=== PATIENT | female | born 1955 | race Caucasian/White ===

== ENCOUNTER 2020-08-24 12:17 | Inpatient (IN) ==
[2020-08-24] MEDS ORDERED: Ondansetron 4 MG/2 ML VIAL IVP ONE (12:28)
[2020-08-24 12:56] LABS: Basophils % 0.3 %; Hematocrit 39.9 % (35.3-44.9); Hemoglobin 13.2 g/dL (11.5-15.4); Immature Granulocytes % 1.1 % (0-4); Lymphocytes # 0.9 K/mcL (0.6-4.6); Lymphocytes % 14.1 %; Mean Corpuscular HGB Conc 33.1 g/dL (31.6-35.5); Mean Corpuscular Hemoglobin 28.4 pg (28.0-33.3); Mean Platelet Volume 9.6 fL (9.4-12.4); Monocytes # 0.6 K/mcL (0.0-1.3); Monocytes % 9.3 %; Neutrophils # 4.7 K/mcL (1.6-8.9); Platelet Count 218 K/mcL (140-400); Red Blood Count 4.64 M/mcL (3.82-4.97); Red Cell Distribution Width 13.1 % (11.5-14.5); Segmented Neutrophils % 75.2 %; White Blood Count 6.2 K/mcL (4.3-11.1)
[2020-08-24 13:05] LABS: Fibrinogen 615 mg/dL (169-393)
[2020-08-24 13:07] LABS: D-Dimer 629 ng/mLFEU (0-500)
[2020-08-24] MEDS ORDERED: levoFLOXacin 750 MG/150 ML 750 MG/150 ML BAG IVPB ONE (13:14)
[2020-08-24 13:24] LABS: Alanine Aminotransferase 31 Units/L (7-52); Alkaline Phosphatase 99 Units/L (34-104); Aspartate Amino Transferase 53 Units/L (13-39); BUN/Creatinine Ratio 10 (6-26); Bilirubin,Total 0.7 mg/dL (0.3-1.0); Blood Urea Nitrogen 6 mg/dL (8-23); Calcium 8.6 mg/dL (8.6-10.3); Carbon Dioxide 26 mEq/L (23-29); Chloride 91 mEq/L (98-107); Glucose 229 mg/dL (70-105); Osmolality,Calculated 277 (280-300); Potassium 2.7 mEq/L (3.5-5.1); Sodium 131 mEq/L (136-145); Troponin I < 0.03 ng/mL (< 0.04); eGFR For African Americans > 60 (> 60); eGFR For Non-African Americans > 60 (> 60)
[2020-08-24] MEDS ORDERED: Isovue-370 500 ML BOTTLE IVP ONE (13:29)
[2020-08-24] MEDS ORDERED: Dexamethasone 4 MG/ML VIAL IVP STA (13:30)
[2020-08-24] MEDS ORDERED: Naloxone 0.4 MG/ML INJ IVP PRN (15:39)
[2020-08-24] MEDS ORDERED: Potassium Chloride 40 MEQ, Lidocaine 1% 2 ML in 0.9 % Sodium Chloride 500 ML IVPB ONE (15:41)
[2020-08-24] MEDS ORDERED: 0.9 % Sodium Chloride 250 ML IVC SCH (17:00)
[2020-08-24] MEDS ORDERED: Remdesivir 200 MG in 0.9 % Sodium Chloride 210 ML IVPB ONE (18:00)
[2020-08-24] MEDS ORDERED: D5% in Water 1,000 ML IVC PRN (20:03)
[2020-08-24] MEDS ORDERED: Dextrose Gel 15 GM/37.5 ML TUBE PO PRN ×2 (20:03)
[2020-08-24] MEDS ORDERED: *HR* Dextrose 50 % in Water (Vial) 50 ML VIAL IVP PRN (20:03)
[2020-08-24] MEDS: Insulin LISPRO 300 UNITS/3 ML VIAL SQ SCH (20:35)
[2020-08-25] MEDS: *HR* Enoxaparin 40 MG/0.4 ML SYRINGE SQ SCH (05:21)
[2020-08-25] MEDS: Benzonatate 100 MG CAPSULE PO PRN ×2 (06:14→14:52)
[2020-08-25] MEDS: Dexamethasone 4 MG/ML VIAL IVP SCH (08:31)
[2020-08-25] MEDS: Aspirin Enteric Coated 81 MG Tablet PO SCH (08:31)
[2020-08-25] MEDS: Insulin LISPRO 300 UNITS/3 ML VIAL SQ SCH ×4 (08:32→20:04)
[2020-08-25] MEDS: levoFLOXacin 750 MG/150 ML 750 MG/150 ML BAG IVPB SCH (08:32)
[2020-08-25 08:33] LABS: Hematocrit 38.1 % (35.3-44.9); Hemoglobin 12.5 g/dL (11.5-15.4); Mean Corpuscular HGB Conc 32.8 g/dL (31.6-35.5); Mean Corpuscular Hemoglobin 28.4 pg (28.0-33.3); Mean Corpuscular Volume 86.6 fL (83.0-100.0); Mean Platelet Volume 9.4 fL (9.4-12.4); Platelet Count 224 K/mcL (140-400); Red Cell Distribution Width 13.2 % (11.5-14.5); White Blood Count 5.3 K/mcL (4.3-11.1)
[2020-08-25 08:37] LABS: INR 1.4; Prothrombin Time 15.7 Seconds (9.4-12.1)
[2020-08-25 08:53] LABS: Alanine Aminotransferase 29 Units/L (7-52); Albumin 3.8 g/dL (3.5-5.7); Alkaline Phosphatase 93 Units/L (34-104); Aspartate Amino Transferase 48 Units/L (13-39); BUN/Creatinine Ratio 19 (6-26); Bilirubin,Total 0.6 mg/dL (0.3-1.0); Blood Urea Nitrogen 10 mg/dL (8-23); Calcium 8.7 mg/dL (8.6-10.3); Carbon Dioxide 28 mEq/L (23-29); Chloride 96 mEq/L (98-107); Globulin 3.7 g/dL (2.4-3.5); Glucose 217 mg/dL (70-105); Osmolality,Calculated 284 (280-300); Potassium 3.1 mEq/L (3.5-5.1); Sodium 134 mEq/L (136-145); Total Protein 7.5 g/dL (6.4-8.9); eGFR For African Americans > 60 (> 60); eGFR For Non-African Americans > 60 (> 60)
[2020-08-25] MEDS: Remdesivir 100 MG in 0.9 % Sodium Chloride 230 ML IVPB SCH (17:50)
[2020-08-25] MEDS: Budesonide/Formoterol 160/4.5 1 PUFF INH IH SCH (20:08)
[2020-08-26 06:09] LABS: Hematocrit 37.1 % (35.3-44.9); Hemoglobin 11.9 g/dL (11.5-15.4); Mean Corpuscular HGB Conc 32.1 g/dL (31.6-35.5); Mean Corpuscular Hemoglobin 28.3 pg (28.0-33.3); Mean Corpuscular Volume 88.1 fL (83.0-100.0); Mean Platelet Volume 9.4 fL (9.4-12.4); Platelet Count 264 K/mcL (140-400); Red Blood Count 4.21 M/mcL (3.82-4.97); Red Cell Distribution Width 13.5 % (11.5-14.5); White Blood Count 6.9 K/mcL (4.3-11.1)
[2020-08-26 06:17] LABS: INR 1.4
[2020-08-26] MEDS: Levothyroxine 25 MCG TABLET PO SCH (06:26)
[2020-08-26] MEDS: *HR* Enoxaparin 40 MG/0.4 ML SYRINGE SQ SCH (06:27)
[2020-08-26 06:30] LABS: Alanine Aminotransferase 26 Units/L (7-52); Albumin 3.6 g/dL (3.5-5.7); Albumin/Globulin Ratio 1.1 (1.1-2.2); Alkaline Phosphatase 86 Units/L (34-104); Aspartate Amino Transferase 45 Units/L (13-39); BUN/Creatinine Ratio 26 (6-26); Bilirubin,Total 0.5 mg/dL (0.3-1.0); Blood Urea Nitrogen 14 mg/dL (8-23); Calcium 8.6 mg/dL (8.6-10.3); Carbon Dioxide 29 mEq/L (23-29); Chloride 99 mEq/L (98-107); Globulin 3.3 g/dL (2.4-3.5); Glucose 168 mg/dL (70-105); Osmolality,Calculated 284 (280-300); Potassium 3.7 mEq/L (3.5-5.1); Sodium 135 mEq/L (136-145); Total Protein 6.9 g/dL (6.4-8.9); eGFR For African Americans > 60 (> 60); eGFR For Non-African Americans > 60 (> 60)
[2020-08-26] MEDS: Budesonide/Formoterol 160/4.5 1 PUFF INH IH SCH ×2 (07:37→19:44)
[2020-08-26] MEDS: Dexamethasone 4 MG/ML VIAL IVP SCH (08:05)
[2020-08-26] MEDS: Venlafaxine XR (24 HR) 150 MG CAP.ER.24H PO SCH (08:06)
[2020-08-26] MEDS: Aspirin Enteric Coated 81 MG Tablet PO SCH (08:06)
[2020-08-26] MEDS: amLODIPine 5 MG TABLET PO SCH ×2 (08:08→09:23)
[2020-08-26] MEDS: levoFLOXacin 750 MG/150 ML 750 MG/150 ML BAG IVPB SCH (08:08)
[2020-08-26] MEDS: Insulin LISPRO 300 UNITS/3 ML VIAL SQ SCH ×4 (08:11→20:37)
[2020-08-26] MEDS: Furosemide 40 MG/4 ML VIAL IVP SCH (11:07)
[2020-08-26] MEDS: Spironolactone 25 MG TABLET PO SCH (11:08)
[2020-08-26] MEDS: Ipratropium 1 PUFF INHALER IH SCH ×3 (16:30→23:49)
[2020-08-26] MEDS: Remdesivir 100 MG in 0.9 % Sodium Chloride 230 ML IVPB SCH (18:54)
[2020-08-26] MEDS: Benzonatate 100 MG CAPSULE PO PRN (20:36)
[2020-08-27] MEDS: Ipratropium 1 PUFF INHALER IH SCH ×5 (04:02→19:36)
[2020-08-27] MEDS ORDERED: Morphine Sulfate 2 MG/ML SYRINGE IVP ONE (05:04)
[2020-08-27] MEDS: Levothyroxine 25 MCG TABLET PO SCH (05:11)
[2020-08-27] MEDS: *HR* Enoxaparin 40 MG/0.4 ML SYRINGE SQ SCH (05:11)
[2020-08-27 06:25] LABS: Hematocrit 37.6 % (35.3-44.9); Hemoglobin 12.1 g/dL (11.5-15.4); Mean Corpuscular HGB Conc 32.2 g/dL (31.6-35.5); Mean Corpuscular Hemoglobin 27.8 pg (28.0-33.3); Mean Corpuscular Volume 86.4 fL (83.0-100.0); Mean Platelet Volume 9.6 fL (9.4-12.4); Platelet Count 313 K/mcL (140-400); Red Blood Count 4.35 M/mcL (3.82-4.97); Red Cell Distribution Width 13.5 % (11.5-14.5); White Blood Count 7.4 K/mcL (4.3-11.1)
[2020-08-27 06:27] LABS: INR 1.4; Prothrombin Time 16.2 Seconds (9.4-12.1)
[2020-08-27 06:51] LABS: Alanine Aminotransferase 25 Units/L (7-52); Albumin 3.4 g/dL (3.5-5.7); Alkaline Phosphatase 88 Units/L (34-104); Aspartate Amino Transferase 49 Units/L (13-39); BUN/Creatinine Ratio 28 (6-26); Bilirubin,Total 0.5 mg/dL (0.3-1.0); Blood Urea Nitrogen 17 mg/dL (8-23); Calcium 8.4 mg/dL (8.6-10.3); Carbon Dioxide 29 mEq/L (23-29); Chloride 95 mEq/L (98-107); Globulin 3.5 g/dL (2.4-3.5); Glucose 151 mg/dL (70-105); Osmolality,Calculated 278 (280-300); Potassium 4.2 mEq/L (3.5-5.1); Sodium 132 mEq/L (136-145); Total Protein 6.9 g/dL (6.4-8.9); eGFR For African Americans > 60 (> 60); eGFR For Non-African Americans > 60 (> 60)
[2020-08-27] MEDS: Budesonide/Formoterol 160/4.5 1 PUFF INH IH SCH ×2 (07:26→19:36)
[2020-08-27] MEDS: Insulin LISPRO 300 UNITS/3 ML VIAL SQ SCH ×4 (08:08→21:01)
[2020-08-27] MEDS: Dexamethasone 4 MG/ML VIAL IVP SCH (10:12)
[2020-08-27] MEDS: Venlafaxine XR (24 HR) 150 MG CAP.ER.24H PO SCH (10:13)
[2020-08-27] MEDS: Spironolactone 25 MG TABLET PO SCH (10:13)
[2020-08-27] MEDS: Aspirin Enteric Coated 81 MG Tablet PO SCH (10:13)
[2020-08-27] MEDS: levoFLOXacin 750 MG TABLET PO SCH (10:13)
[2020-08-27] MEDS: Furosemide 40 MG/4 ML VIAL IVP SCH (10:14)
[2020-08-27] MEDS: amLODIPine 5 MG TABLET PO SCH (10:14)
[2020-08-27] MEDS: Remdesivir 100 MG in 0.9 % Sodium Chloride 230 ML IVPB SCH (17:58)
[2020-08-27] MEDS: Benzonatate 100 MG CAPSULE PO PRN (20:44)
[2020-08-28] MEDS: Ipratropium 1 PUFF INHALER IH SCH ×7 (00:03→23:37)
[2020-08-28] MEDS: *HR* Enoxaparin 40 MG/0.4 ML SYRINGE SQ SCH (05:29)
[2020-08-28] MEDS: Levothyroxine 25 MCG TABLET PO SCH (05:30)
[2020-08-28 05:54] LABS: Hemoglobin 12.4 g/dL (11.5-15.4); Mean Corpuscular HGB Conc 32.6 g/dL (31.6-35.5); Mean Corpuscular Hemoglobin 28.9 pg (28.0-33.3); Mean Corpuscular Volume 88.6 fL (83.0-100.0); Mean Platelet Volume 9.3 fL (9.4-12.4); Platelet Count 314 K/mcL (140-400); Red Blood Count 4.29 M/mcL (3.82-4.97); Red Cell Distribution Width 13.4 % (11.5-14.5); White Blood Count 6.6 K/mcL (4.3-11.1)
[2020-08-28 05:56] LABS: INR 1.4; Prothrombin Time 16.2 Seconds (9.4-12.1)
[2020-08-28 06:15] LABS: Alanine Aminotransferase 23 Units/L (7-52); Albumin 3.6 g/dL (3.5-5.7); Alkaline Phosphatase 94 Units/L (34-104); Aspartate Amino Transferase 34 Units/L (13-39); BUN/Creatinine Ratio 25 (6-26); Bilirubin,Total 0.5 mg/dL (0.3-1.0); Blood Urea Nitrogen 14 mg/dL (8-23); Calcium 8.6 mg/dL (8.6-10.3); Carbon Dioxide 29 mEq/L (23-29); Chloride 95 mEq/L (98-107); Globulin 3.5 g/dL (2.4-3.5); Glucose 165 mg/dL (70-105); Osmolality,Calculated 278 (280-300); Potassium 3.6 mEq/L (3.5-5.1); Sodium 132 mEq/L (136-145); Total Protein 7.1 g/dL (6.4-8.9); eGFR For African Americans > 60 (> 60); eGFR For Non-African Americans > 60 (> 60)
[2020-08-28] MEDS: Budesonide/Formoterol 160/4.5 1 PUFF INH IH SCH ×2 (08:01→20:02)
[2020-08-28] MEDS: Insulin LISPRO 300 UNITS/3 ML VIAL SQ SCH ×4 (08:10→21:19)
[2020-08-28] MEDS: Furosemide 40 MG/4 ML VIAL IVP SCH ×2 (08:12→21:18)
[2020-08-28] MEDS: Spironolactone 25 MG TABLET PO SCH (08:13)
[2020-08-28] MEDS: Dexamethasone 4 MG/ML VIAL IVP SCH (08:13)
[2020-08-28] MEDS: Aspirin Enteric Coated 81 MG Tablet PO SCH (08:13)
[2020-08-28] MEDS: Venlafaxine XR (24 HR) 150 MG CAP.ER.24H PO SCH (08:14)
[2020-08-28] MEDS: amLODIPine 5 MG TABLET PO SCH (08:14)
[2020-08-28] MEDS: levoFLOXacin 750 MG TABLET PO SCH (08:14)
[2020-08-28] MEDS: Remdesivir 100 MG in 0.9 % Sodium Chloride 230 ML IVPB SCH (17:49)
[2020-08-28] MEDS: Benzonatate 100 MG CAPSULE PO PRN (21:20)
[2020-08-29 02:36] LABS: Basophils # 0.1 K/mcL (0.0-0.2); Basophils % 0.6 %; Eosinophils % 0.2 %; Hematocrit 40.8 % (35.3-44.9); Hemoglobin 13.2 g/dL (11.5-15.4); Immature Granulocytes % 3.1 % (0-4); Lymphocytes # 1.4 K/mcL (0.6-4.6); Lymphocytes % 17.4 %; Mean Corpuscular HGB Conc 32.4 g/dL (31.6-35.5); Mean Corpuscular Hemoglobin 28.6 pg (28.0-33.3); Mean Corpuscular Volume 88.3 fL (83.0-100.0); Mean Platelet Volume 9.6 fL (9.4-12.4); Monocytes # 0.8 K/mcL (0.0-1.3); Monocytes % 9.5 %; Neutrophils # 5.7 K/mcL (1.6-8.9); Platelet Count 382 K/mcL (140-400); Red Blood Count 4.62 M/mcL (3.82-4.97); Red Cell Distribution Width 13.4 % (11.5-14.5); Segmented Neutrophils % 69.2 %; White Blood Count 8.3 K/mcL (4.3-11.1)
[2020-08-29 02:45] LABS: INR 1.3; Prothrombin Time 15.3 Seconds (9.4-12.1)
[2020-08-29 02:52] LABS: Fibrinogen 500 mg/dL (169-393)
[2020-08-29 02:53] LABS: D-Dimer 906 ng/mLFEU (0-500)
[2020-08-29 02:55] LABS: BUN/Creatinine Ratio 25 (6-26); Blood Urea Nitrogen 16 mg/dL (8-23); Calcium 8.7 mg/dL (8.6-10.3); Carbon Dioxide 30 mEq/L (23-29); Chloride 91 mEq/L (98-107); Glucose 206 mg/dL (70-105); Magnesium 1.8 mg/dL (1.6-2.6); Osmolality,Calculated 281 (280-300); Potassium 3.5 mEq/L (3.5-5.1); Sodium 132 mEq/L (136-145); eGFR For African Americans > 60 (> 60); eGFR For Non-African Americans > 60 (> 60)
[2020-08-29] MEDS: Ipratropium 1 PUFF INHALER IH SCH ×6 (03:26→23:24)
[2020-08-29] MEDS: Levothyroxine 25 MCG TABLET PO SCH (05:14)
[2020-08-29] MEDS: *HR* Enoxaparin 40 MG/0.4 ML SYRINGE SQ SCH (05:14)
[2020-08-29] MEDS: Budesonide/Formoterol 160/4.5 1 PUFF INH IH SCH ×2 (07:29→19:47)
[2020-08-29] MEDS: Venlafaxine XR (24 HR) 150 MG CAP.ER.24H PO SCH (09:13)
[2020-08-29] MEDS: amLODIPine 5 MG TABLET PO SCH (09:13)
[2020-08-29] MEDS: Aspirin Enteric Coated 81 MG Tablet PO SCH (09:13)
[2020-08-29] MEDS: Spironolactone 25 MG TABLET PO SCH (09:13)
[2020-08-29] MEDS: Azithromycin 250 MG TABLET PO SCH (09:13)
[2020-08-29] MEDS: Insulin LISPRO 300 UNITS/3 ML VIAL SQ SCH ×4 (09:17→20:37)
[2020-08-29] MEDS: Dexamethasone 4 MG/ML VIAL IVP SCH (09:17)
[2020-08-29] MEDS: Furosemide 40 MG/4 ML VIAL IVP SCH ×2 (09:18→20:08)
[2020-08-29] MEDS: Benzonatate 100 MG CAPSULE PO PRN (20:33)
[2020-08-30] MEDS: Ipratropium 1 PUFF INHALER IH SCH ×6 (03:47→23:57)
[2020-08-30] MEDS: Levothyroxine 25 MCG TABLET PO SCH (05:08)
[2020-08-30] MEDS: *HR* Enoxaparin 40 MG/0.4 ML SYRINGE SQ SCH (05:08)
[2020-08-30] MEDS: Budesonide/Formoterol 160/4.5 1 PUFF INH IH SCH ×2 (07:39→20:04)
[2020-08-30] MEDS: Insulin LISPRO 300 UNITS/3 ML VIAL SQ SCH ×4 (08:09→21:40)
[2020-08-30] MEDS: Aspirin Enteric Coated 81 MG Tablet PO SCH (08:10)
[2020-08-30] MEDS: Azithromycin 250 MG TABLET PO SCH (08:10)
[2020-08-30] MEDS: Furosemide 40 MG/4 ML VIAL IVP SCH ×2 (08:10→21:12)
[2020-08-30] MEDS: Venlafaxine XR (24 HR) 150 MG CAP.ER.24H PO SCH (08:10)
[2020-08-30] MEDS: amLODIPine 5 MG TABLET PO SCH (08:10)
[2020-08-30] MEDS: Dexamethasone 4 MG/ML VIAL IVP SCH (08:11)
[2020-08-30 10:28] LABS: Basophils # 0.1 K/mcL (0.0-0.2); Basophils % 0.5 %; Eosinophils # 0.2 K/mcL (0.0-0.6); Eosinophils % 1.6 %; Hematocrit 42.7 % (35.3-44.9); Hemoglobin 13.8 g/dL (11.5-15.4); Immature Granulocytes % 2.6 % (0-4); Lymphocytes # 1.2 K/mcL (0.6-4.6); Lymphocytes % 12.5 %; Mean Corpuscular HGB Conc 32.3 g/dL (31.6-35.5); Mean Corpuscular Hemoglobin 28.2 pg (28.0-33.3); Mean Corpuscular Volume 87.3 fL (83.0-100.0); Mean Platelet Volume 9.1 fL (9.4-12.4); Monocytes # 0.8 K/mcL (0.0-1.3); Monocytes % 8.2 %; Neutrophils # 7.2 K/mcL (1.6-8.9); Platelet Count 421 K/mcL (140-400); Red Blood Count 4.89 M/mcL (3.82-4.97); Red Cell Distribution Width 13.5 % (11.5-14.5); Segmented Neutrophils % 74.6 %; White Blood Count 9.6 K/mcL (4.3-11.1)
[2020-08-30 10:38] LABS: INR 1.3; Prothrombin Time 15.4 Seconds (9.4-12.1)
[2020-08-30 10:49] LABS: BUN/Creatinine Ratio 29 (6-26); Blood Urea Nitrogen 20 mg/dL (8-23); Calcium 8.9 mg/dL (8.6-10.3); Carbon Dioxide 28 mEq/L (23-29); Chloride 91 mEq/L (98-107); Glucose 262 mg/dL (70-105); Magnesium 1.8 mg/dL (1.6-2.6); Osmolality,Calculated 286 (280-300); Potassium 3.1 mEq/L (3.5-5.1); Sodium 132 mEq/L (136-145); eGFR For African Americans > 60 (> 60); eGFR For Non-African Americans > 60 (> 60)
[2020-08-30] MEDS: Benzonatate 100 MG CAPSULE PO PRN (17:29)
[2020-08-31] MEDS: Ipratropium 1 PUFF INHALER IH SCH ×6 (04:03→23:48)
[2020-08-31] MEDS: Levothyroxine 25 MCG TABLET PO SCH (05:37)
[2020-08-31] MEDS: *HR* Enoxaparin 40 MG/0.4 ML SYRINGE SQ SCH (05:38)
[2020-08-31 06:06] LABS: Basophils # 0.1 K/mcL (0.0-0.2); Basophils % 0.5 %; Eosinophils # 0.1 K/mcL (0.0-0.6); Eosinophils % 1.5 %; Hematocrit 42.8 % (35.3-44.9); Hemoglobin 13.9 g/dL (11.5-15.4); Immature Granulocytes % 2.7 % (0-4); Lymphocytes # 1.8 K/mcL (0.6-4.6); Lymphocytes % 18.8 %; Mean Corpuscular HGB Conc 32.5 g/dL (31.6-35.5); Mean Corpuscular Hemoglobin 28.1 pg (28.0-33.3); Mean Corpuscular Volume 86.6 fL (83.0-100.0); Mean Platelet Volume 9.2 fL (9.4-12.4); Monocytes % 10.1 %; Neutrophils # 6.4 K/mcL (1.6-8.9); Platelet Count 399 K/mcL (140-400); Red Blood Count 4.94 M/mcL (3.82-4.97); Red Cell Distribution Width 13.4 % (11.5-14.5); Segmented Neutrophils % 66.4 %; White Blood Count 9.6 K/mcL (4.3-11.1)
[2020-08-31 06:07] LABS: INR 1.3; Prothrombin Time 14.4 Seconds (9.4-12.1)
[2020-08-31 06:30] LABS: BUN/Creatinine Ratio 36 (6-26); Blood Urea Nitrogen 21 mg/dL (8-23); Calcium 9.1 mg/dL (8.6-10.3); Carbon Dioxide 31 mEq/L (23-29); Chloride 92 mEq/L (98-107); Glucose 177 mg/dL (70-105); Magnesium 1.9 mg/dL (1.6-2.6); Osmolality,Calculated 283 (280-300); Potassium 3.4 mEq/L (3.5-5.1); Sodium 133 mEq/L (136-145); eGFR For African Americans > 60 (> 60); eGFR For Non-African Americans > 60 (> 60)
[2020-08-31] MEDS: Budesonide/Formoterol 160/4.5 1 PUFF INH IH SCH ×2 (07:44→19:39)
[2020-08-31] MEDS: Insulin LISPRO 300 UNITS/3 ML VIAL SQ SCH ×4 (08:09→20:48)
[2020-08-31] MEDS: amLODIPine 5 MG TABLET PO SCH (08:41)
[2020-08-31] MEDS: Azithromycin 250 MG TABLET PO SCH (08:41)
[2020-08-31] MEDS: Venlafaxine XR (24 HR) 150 MG CAP.ER.24H PO SCH (08:41)
[2020-08-31] MEDS: Aspirin Enteric Coated 81 MG Tablet PO SCH (08:41)
[2020-08-31] MEDS: Dexamethasone 4 MG/ML VIAL IVP SCH (08:41)
[2020-08-31] MEDS: Spironolactone 25 MG TABLET PO SCH (08:41)
[2020-08-31] MEDS: Furosemide 40 MG/4 ML VIAL IVP SCH ×2 (08:42→20:48)
[2020-08-31] MEDS: Benzonatate 100 MG CAPSULE PO PRN (21:01)
[2020-09-01] MEDS: Ipratropium 1 PUFF INHALER IH SCH ×6 (03:40→23:48)
[2020-09-01] MEDS: Levothyroxine 25 MCG TABLET PO SCH (05:41)
[2020-09-01] MEDS: *HR* Enoxaparin 40 MG/0.4 ML SYRINGE SQ SCH (05:41)
[2020-09-01] MEDS: Budesonide/Formoterol 160/4.5 1 PUFF INH IH SCH ×2 (07:45→19:58)
[2020-09-01] MEDS: Dexamethasone 4 MG/ML VIAL IVP SCH (09:25)
[2020-09-01] MEDS: Venlafaxine XR (24 HR) 150 MG CAP.ER.24H PO SCH (09:26)
[2020-09-01] MEDS: Aspirin Enteric Coated 81 MG Tablet PO SCH (09:26)
[2020-09-01] MEDS: Furosemide 40 MG/4 ML VIAL IVP SCH ×2 (09:26→21:05)
[2020-09-01] MEDS: Insulin LISPRO 300 UNITS/3 ML VIAL SQ SCH ×4 (09:26→21:05)
[2020-09-01] MEDS: amLODIPine 5 MG TABLET PO SCH (09:26)
[2020-09-01] MEDS: Spironolactone 25 MG TABLET PO SCH (09:26)
[2020-09-01] MEDS: Azithromycin 250 MG TABLET PO SCH (09:26)
[2020-09-01 09:34] LABS: Basophils % 0.2 %; Eosinophils # 0.1 K/mcL (0.0-0.6); Eosinophils % 1.1 %; Hematocrit 42.1 % (35.3-44.9); Hemoglobin 13.9 g/dL (11.5-15.4); Immature Granulocytes % 1.6 % (0-4); Lymphocytes % 22.6 %; Mean Corpuscular Hemoglobin 29.2 pg (28.0-33.3); Mean Corpuscular Volume 88.4 fL (83.0-100.0); Mean Platelet Volume 9.2 fL (9.4-12.4); Monocytes # 0.8 K/mcL (0.0-1.3); Monocytes % 9.2 %; Neutrophils # 5.9 K/mcL (1.6-8.9); Platelet Count 375 K/mcL (140-400); Red Blood Count 4.76 M/mcL (3.82-4.97); Red Cell Distribution Width 13.3 % (11.5-14.5); Segmented Neutrophils % 65.3 %
[2020-09-01 09:53] LABS: BUN/Creatinine Ratio 38 (6-26); Blood Urea Nitrogen 23 mg/dL (8-23); Carbon Dioxide 29 mEq/L (23-29); Chloride 91 mEq/L (98-107); Glucose 208 mg/dL (70-105); Magnesium 1.9 mg/dL (1.6-2.6); Osmolality,Calculated 282 (280-300); Potassium 3.4 mEq/L (3.5-5.1); Sodium 131 mEq/L (136-145); eGFR For African Americans > 60 (> 60); eGFR For Non-African Americans > 60 (> 60)
[2020-09-01] MEDS: Benzonatate 100 MG CAPSULE PO PRN (21:05)
[2020-09-02 01:56] LABS: Basophils % 0.2 %; Eosinophils # 0.1 K/mcL (0.0-0.6); Eosinophils % 0.5 %; Hemoglobin 13.6 g/dL (11.5-15.4); Immature Granulocytes % 1.8 % (0-4); Lymphocytes # 1.6 K/mcL (0.6-4.6); Lymphocytes % 14.4 %; Mean Corpuscular HGB Conc 33.2 g/dL (31.6-35.5); Mean Corpuscular Hemoglobin 28.7 pg (28.0-33.3); Mean Corpuscular Volume 86.5 fL (83.0-100.0); Mean Platelet Volume 9.2 fL (9.4-12.4); Monocytes # 1.1 K/mcL (0.0-1.3); Monocytes % 10.2 %; Neutrophils # 7.9 K/mcL (1.6-8.9); Platelet Count 408 K/mcL (140-400); Red Blood Count 4.74 M/mcL (3.82-4.97); Red Cell Distribution Width 13.2 % (11.5-14.5); Segmented Neutrophils % 72.9 %; White Blood Count 10.8 K/mcL (4.3-11.1)
[2020-09-02 02:38] LABS: BUN/Creatinine Ratio 39 (6-26); Blood Urea Nitrogen 23 mg/dL (8-23); Calcium 9.3 mg/dL (8.6-10.3); Carbon Dioxide 28 mEq/L (23-29); Chloride 90 mEq/L (98-107); Glucose 220 mg/dL (70-105); Magnesium 2.1 mg/dL (1.6-2.6); Osmolality,Calculated 278 (280-300); Sodium 129 mEq/L (136-145); eGFR For African Americans > 60 (> 60); eGFR For Non-African Americans > 60 (> 60)
[2020-09-02] MEDS: Ipratropium 1 PUFF INHALER IH SCH ×6 (03:57→23:32)
[2020-09-02] MEDS: Levothyroxine 25 MCG TABLET PO SCH (05:26)
[2020-09-02] MEDS: *HR* Enoxaparin 40 MG/0.4 ML SYRINGE SQ SCH (05:26)
[2020-09-02] MEDS: Budesonide/Formoterol 160/4.5 1 PUFF INH IH SCH ×2 (07:36→20:15)
[2020-09-02] MEDS: Spironolactone 25 MG TABLET PO SCH (08:25)
[2020-09-02] MEDS: Venlafaxine XR (24 HR) 150 MG CAP.ER.24H PO SCH (08:25)
[2020-09-02] MEDS: amLODIPine 5 MG TABLET PO SCH (08:25)
[2020-09-02] MEDS: Azithromycin 250 MG TABLET PO SCH (08:25)
[2020-09-02] MEDS: Aspirin Enteric Coated 81 MG Tablet PO SCH (08:26)
[2020-09-02] MEDS: Dexamethasone 4 MG/ML VIAL IVP SCH (08:26)
[2020-09-02] MEDS: Insulin LISPRO 300 UNITS/3 ML VIAL SQ SCH ×4 (08:27→21:34)
[2020-09-02] MEDS: Furosemide 40 MG/4 ML VIAL IVP SCH (08:27)
[2020-09-03] MEDS: Ipratropium 1 PUFF INHALER IH SCH ×5 (03:29→19:56)
[2020-09-03] MEDS: Levothyroxine 25 MCG TABLET PO SCH (05:46)
[2020-09-03] MEDS: *HR* Enoxaparin 40 MG/0.4 ML SYRINGE SQ SCH (05:47)
[2020-09-03 07:34] LABS: INR 1.1; Prothrombin Time 12.8 Seconds (9.4-12.1)
[2020-09-03 07:41] LABS: Hematocrit 40.5 % (35.3-44.9); Hemoglobin 13.3 g/dL (11.5-15.4); Mean Corpuscular HGB Conc 32.8 g/dL (31.6-35.5); Mean Corpuscular Hemoglobin 28.1 pg (28.0-33.3); Mean Corpuscular Volume 85.6 fL (83.0-100.0); Mean Platelet Volume 9.4 fL (9.4-12.4); Platelet Count 355 K/mcL (140-400); Red Blood Count 4.73 M/mcL (3.82-4.97); Red Cell Distribution Width 13.2 % (11.5-14.5); White Blood Count 10.8 K/mcL (4.3-11.1)
[2020-09-03] MEDS: Budesonide/Formoterol 160/4.5 1 PUFF INH IH SCH ×2 (07:51→19:56)
[2020-09-03 08:05] LABS: Alanine Aminotransferase 38 Units/L (7-52); Albumin/Globulin Ratio 1.1 (1.1-2.2); Alkaline Phosphatase 101 Units/L (34-104); Aspartate Amino Transferase 50 Units/L (13-39); BUN/Creatinine Ratio 36 (6-26); Bilirubin,Total 0.8 mg/dL (0.3-1.0); Blood Urea Nitrogen 20 mg/dL (8-23); Calcium 9.3 mg/dL (8.6-10.3); Carbon Dioxide 31 mEq/L (23-29); Chloride 90 mEq/L (98-107); Globulin 3.5 g/dL (2.4-3.5); Glucose 147 mg/dL (70-105); Lactate Dehydrogenase 171 Units/L (140-271); Magnesium 2.2 mg/dL (1.6-2.6); Osmolality,Calculated 275 (280-300); Phosphorous 3.7 mg/dL (2.7-4.5); Potassium 3.8 mEq/L (3.5-5.1); Sodium 130 mEq/L (136-145); Total Protein 7.5 g/dL (6.4-8.9); eGFR For African Americans > 60 (> 60); eGFR For Non-African Americans > 60 (> 60)
[2020-09-03 08:21] LABS: Ferritin 288 ng/mL (10-120)
[2020-09-03] MEDS: Venlafaxine XR (24 HR) 150 MG CAP.ER.24H PO SCH (08:36)
[2020-09-03] MEDS: Aspirin Enteric Coated 81 MG Tablet PO SCH (08:36)
[2020-09-03] MEDS: Azithromycin 250 MG TABLET PO SCH (08:36)
[2020-09-03] MEDS: amLODIPine 5 MG TABLET PO SCH (08:36)
[2020-09-03] MEDS: Insulin LISPRO 300 UNITS/3 ML VIAL SQ SCH ×2 (08:37→12:12)
[2020-09-03] MEDS: Dexamethasone 4 MG/ML VIAL IVP SCH (08:37)
[2020-09-03] MEDS ORDERED: Furosemide 40 MG TABLET PO SCH (09:00)
[2020-09-03 09:29] LABS: Estimated Average Glucose 220 mg/dl
[2020-09-03 09:42] LABS: C-Reactive Protein < 5 mg/L (Less than 10)
[2020-09-03 12:00] VITALS: BP 107/58
== END 2020-09-03 17:00 | disposition home health service (06) | DRG 871 ==
LOC: 2NENU 12:17 → EMEROOARM 12:17 → 2NENU 16:03 → SUATTDRO 16:45
PROVIDERS: ADMIT Internal Medicine; ATTEND Internal Medicine